=== PATIENT | female | born 1940 | race Caucasian/White ===

== ENCOUNTER → 2018-11-05 10:00 | Outpatient (CLI) | payer MEDICARE, OTHER, SELFPAY ==
--- NOTE | 2018-11-05 10:30 | PET_ITS ---
EXAMINATION: FDG PET/CT INDICATIONS: A 78-year-old female with history of pulmonary nodularity. COMPARISON EXAMINATION: CT of the chest report dated 10/18/18 TECHNIQUE: Following the intravenous administration of 15.6 mCi of F-18 deoxyglucose via the left antecubital fossa, multiplanar image acquisitions of the neck, chest, abdomen and pelvis to level of mid thigh, obtained at one hour post radiopharmaceutical administration contemporaneously interpreted with the current CT of the neck, chest, abdomen and pelvis to level of mid thigh, dated 11/05/[address] of the chest report dated 10/18/18 reveal: SERUM GLUCOSE LEVEL: 82 mg/dl. HEIGHT: 65 inches. WEIGHT: 160 lbs. FINDINGS: 1. There is no quantitative scintigraphic evidence of abnormal increased glucose metabolism within the context of the bilateral hemithorax pulmonary parenchyma to correlate with structural changes noted on review of CT of the thorax dated 11/05/18. 2. Normal physiologic distribution of the radiopharmaceutical is apparent in the hepatic and splenic parenchyma, both renal units, bladder and visualized intestinal tract. The visualized portion of the cerebral cortex demonstrate symmetric and preserved glucose metabolism. Diffuse radiopharmaceutical concentration is noted in all four quadrants of the abdomen and pelvis. Pertinent CT findings are as follows: CHEST: Parenchymal densities defined in the bilateral hemithorax demonstrate no evidence of quantitatively significant increased glucose metabolism. Subcentimeter right and left axillary soft tissue densities with fatty hilus formation are non-glucose avid. There is atherosclerotic calcification defined in the thoracic aorta without evidence of dilatation-aneurysm formation. Coronary arterial calcification is observed. ABDOMEN AND PELVIS: There is atherosclerotic calcification defined in the abdominal aorta without evidence of dilatation-aneurysm formation. Abdominal-pelvic arterial calcification is identified. Right-left inguinal soft tissue densities with fatty hilus formation are ametabolic. Colonic diverticulosis is defined without evidence of diverticulitis. SKELETAL: Degenerative changes are noted in the cervical, thoracic and lumbar spine. Diffuse demineralization is demonstrated throughout the visualized axial skeletal structures. PET/PET/CT Tumor Base -Thigh Init IMPRESSION: 1. NEGATIVE EXAMINATION. There is no quantitative scintigraphic evidence of abnormal increased glucose metabolism within the context of the bilateral hemithorax pulmonary parenchyma to correlate with structural changes noted on review of CT of the thorax dated 11/05/18. 2. Anatomic stability may be ensured in the ametabolic bilateral hemithorax pulmonary parenchymal densities with repeat CT of the thorax in three months. ([place], Seminars in Thoracic and Cardiovascular Surgery 14:292, 2002). Electronic Signature Brent Leyva D.O. Electronically Signed: Brent Leyva DO at 22:59 EDT Tel , Service support ,
== END ==
PROVIDERS: Family Provider Nurse Practitioner Family; PCP Nurse Practitioner Family; Referring Provider Nurse Practitioner Family; Visit Provider Nurse Practitioner Family
DX: R91.8 Other nonspecific abnormal finding of lung field (principal); R93.89 Abnormal findings on diagnostic imaging of other specified body structures
CPT/HCPCS: 78815; A9552